=== PATIENT | female | born 1980 | race Two or more races ===

== ENCOUNTER 2018-10-19 14:54 | Emergency (ER) | payer OTHER ==
[~2018-10-19] VITALS: Ht 157.5 cm; Wt 45.4 kg
== END 2018-10-19 18:19 | disposition home or self-care (01) ==
LOC: ER 14:54
DX: N39.0 Urinary tract infection, site not specified (principal); B96.29 Other Escherichia coli [E. coli] as the cause of diseases classified elsewhere

== ENCOUNTER 2022-01-08 08:26 | Outpatient (CLI) | payer OTHER | END 2022-01-08 13:15 | disposition home or self-care (01) | LOC: MAMO-SONO 08:26 | DX: Z12.31 Encounter for screening mammogram for malignant neoplasm of breast (principal) ==